=== PATIENT | female | born 1940 | race Caucasian/White ===

== ENCOUNTER 2017-10-30 17:01 | Inpatient (IN) | payer MEDICARE, OTHER ==
[2017-10-30 17:14] LABS: #Lymphocytes 0.8 thou/uL (1.20-3.40); #Monocytes 0.8 thou/uL (0.11-0.59); #Neutrophils 13.2 thou/uL (1.40-6.50); %Basophils 0.1 % (0.0-1.0); %Eosinophils 0.3 % (0.0-10.0); %Monocytes 5.3 % (0.0-10.0); %Neutrophils 89.3 % (42.0-75.0); Hemoglobin 12.4 g/dL (12.0-16.0); Mean Corpuscular HGB CONC 33.8 g/dL (32.0-36.0); Mean Corpuscular Hemoglobin 31.5 pg (27.0-31.0); Mean Corpuscular Volume 93.1 fL (78.0-98.0); Mean Platelet Volume 6.8 fL (7.4-10.4); Platelet Count 179 thou/uL (130-400); RBC Distribution Width 13.1 % (11.5-14.5); Red Blood Cell (RBC) Count 3.93 mill/uL (4.20-5.40); White Blood Cell (WBC) Count 14.8 thou/uL (4.8-10.8)
[2017-10-30 17:22] LABS: INR-International Normal Ratio 1.3; PTT 29.6 SEC (22.9-36.1); Prothrombin Time 16.3 SEC (12.0-14.7)
[2017-10-30 17:35] LABS: ALT (SGPT) 15 U/L (8-55); AST (SGOT) 16 U/L (5-34); Albumin 3.5 g/dL (3.4-4.8); Anion Gap 13 mmol/L (10-20); BUN (Urea Nitrogen) 26 mg/dL (9.8-20.1); Bilirubin, Total 1.4 mg/dL (0.2-1.2); Calc. Creatinine Clearance 0 mL/min (70-130); Calcium 7.4 mg/dL (7.8-10.44); Carbon Dioxide 18 mmol/L (23-31); Chloride 104 mmol/L (98-107); Estimated GFR-MDRD 90; Globulin 1.9 g/dL (2.4-3.5); Glucose 143 mg/dL (83-110); Potassium 3.7 mmol/L (3.5-5.1); Protein, Total 5.4 g/dL (6.0-8.3); Sodium 131 mmol/L (136-145)
[2017-10-30 17:35] LABS: CKMB 1.5 ng/mL (0-6.6); Troponin I Less than 0.010 ng/mL (< 0.028)
[2017-10-30 17:50] LABS: Alkaline Phosphatase 48 U/L (40-150)
[2017-10-30] MEDS ORDERED: Ondansetron ODT 4 MG TAB PO PRN (18:32)
[2017-10-30] MEDS ORDERED: Dextrose 50% Abboject 50 ML SYRINGE SLOW IVP PRN (18:32)
[2017-10-30] MEDS ORDERED: traMADol HCl 50 MG TAB PO PRN (18:32)
[2017-10-30] MEDS ORDERED: Ondansetron HCl/PF 4 MG/2 ML Vial IVP PRN (18:32)
[2017-10-30] MEDS ORDERED: Dextrose 5% in Water 1,000 ML IV PRN (18:32)
[2017-10-30 18:36] VITALS: BMI 25.2
[2017-10-30 19:02] LABS: Hemoglobin 11.6 g/dL (12.0-16.0)
[2017-10-30] MEDS: Sodium Chloride 0.9% 1,000 ML IV SCH (20:05)
--- NOTE | 2017-10-30 21:28 | RAD ---
PELVIS ONE VIEW: HISTORY: Pelvic rami fractures. COMPARISON: Outside facility CT. FINDINGS: There are nondisplaced bilateral pubic body and inferior pubic rami fractures. No acetabular fractur e is appreciated. The SI joints are not widened. IMPRESSION: 1. Nondisplaced bilateral pubic body and pubic rami fractures. 2. Soft tissue density of the left pelvis, likely from known space of Retzius hematoma. POS: [facility]
[2017-10-30] MEDS: Famotidine 20 MG TAB PO SCH (21:48)
[2017-10-31] MEDS: Acetaminophen 1,000 MG in Premix Bag 1 BAG IVPB SCH ×2 (00:15→05:36)
--- NOTE | 2017-10-31 00:34 | HP ---
DATE OF ADMISSION: 10/30/2017 ADMISSION HISTORY AND PHYSICAL REQUESTING PHYSICIAN: Dr. Traore. ATTENDING SURGEON: Dr. Corley. CONSULTATION: Orthopedics, Dr. Wood. HISTORY OF PRESENT ILLNESS: The patient is a 77-year-old, woman, who was walking her dog w hen she tripped and fell backwards landing on her buttocks. She had immediate pain to her right side , specifically to her right hip and shoulder. She was taken to the emergency department by ground EM S in [place] where she underwent evaluation and examination and was noted to have inferior and sup erior pubic rami fractures on the right pelvic hematoma. While there, the patient had an episode of hypotension with systolic blood pressure in the 90s, at which time, they transfused her one unit of b lood and gave her a liter of normal saline, her blood pressure then returned above 100 systolic. We were asked to take the patient as a transfer for close monitoring and a higher level of care. En rou te, the air ambulance crew reported that her blood pressure again dropped below 100 systolic, and the y gave her another unit of blood. No time was a report of tachycardia with the patient's blood press ure changes. The patient at no time had altered mental status or change in level of consciousness, a nd according to family, it has been at her baseline. The patient was initially activated as a level 1 trauma. Shortly after arriving, initial assessment showed that she was stable and was downgraded to a level 2. Dr. Corley examined the patient with me in the trauma bay. PHYSICAL EXAMINATION: VITAL SIGNS: Blood pressure 114/70, heart rate 70, respirations 18, oxygen saturation 97% on 2 liter s via nasal cannula, temperature is 97.9. HEENT: Head is normocephalic, atraumatic. Eyes: Extraocular motion intact. PERRLA bilaterally. E ars are atraumatic with discharge. Nose is atraumatic with discharge. Oropharynx is clear. NECK: Has a small amount of tenderness to the right paraspinous area. There is no tenderness to mid line. Trachea is midline. There is no JVD. CHEST: Clear to auscultation with good inspiratory and expiratory effort. There was a small abrasio n noted to the posterior aspect of her right shoulder. HEART: Regular rate and rhythm. ABDOMEN: Soft, flat, nontender with active bowel sounds. The patient has tenderness to palpation ov er this suprapubic area consistent with her hematoma. MUSCULOSKELETAL: Pelvis is tender to palpation. EXTREMITIES: Neurovascularly intact x4. BACK: Nontender and atraumatic. LABORATORY DATA: White blood cell count 14.8, hemoglobin 12.4, hematocrit 36.6, platelets 179. Sodi um 131, potassium 3.7, chloride 104, CO2 of 18, BUN 26, creatinine 0.64, glucose 143. Total bilirubi n 1.4, AST 16, ALT 15. CK-MB 1.5. Troponin less than 0.010. BNP 124. INR 1.3, PT 16, PTT 30. RADIOGRAPHIC FINDINGS: CT of the brain without contrast was unremarkable for acute findings. CT of the C-spine without contrast is unremarkable for acute findings. CT of the chest, abdomen, and pelvi s without contrast shows inferior and superior pubic rami fractures on the right with a 9 x 9 cm pelv ic hematoma. ASSESSMENT AND PLAN: 1. Status post ground level fall. 2. Right inferior and superior pubic rami fractures. 3. Intrapelvic hematoma. 4. History of hypotension. Plan will be to admit the patient to the Intermediate Care Unit for close observation, serial exams. We will repeat her hemoglobin and hematocrit q.6 hours throughout the night. Otherwise, the patient will have pain control, clear liquid diet, pulmonary toilet, gastritis, mechanical VTE prophylaxis. In the morning, we will have the patient evaluated by Orthopedics and then subsequently by PT and OT . The evaluation, examination, laboratory and radiographic findings were done with Dr. Corley in [facility] emergency department.
[2017-10-31 00:53] LABS: Hemoglobin 10.3 g/dL (12.0-16.0)
[2017-10-31 03:58] LABS: #Monocytes 0.7 thou/uL (0.11-0.59); #Neutrophils 7.5 thou/uL (1.40-6.50); %Basophils 0.3 % (0.0-1.0); %Eosinophils 0.3 % (0.0-10.0); %Neutrophils 81.4 % (42.0-75.0); Hemoglobin 10.2 g/dL (12.0-16.0); Mean Corpuscular HGB CONC 34.2 g/dL (32.0-36.0); Mean Corpuscular Hemoglobin 31.4 pg (27.0-31.0); Mean Corpuscular Volume 91.7 fL (78.0-98.0); Mean Platelet Volume 6.9 fL (7.4-10.4); Platelet Count 166 thou/uL (130-400); RBC Distribution Width 13.4 % (11.5-14.5); Red Blood Cell (RBC) Count 3.24 mill/uL (4.20-5.40); White Blood Cell (WBC) Count 9.2 thou/uL (4.8-10.8)
[2017-10-31 04:20] LABS: Anion Gap 12 mmol/L (10-20); BUN (Urea Nitrogen) 25 mg/dL (9.8-20.1); Calc. Creatinine Clearance 78 mL/min (70-130); Carbon Dioxide 21 mmol/L (23-31); Chloride 103 mmol/L (98-107); Estimated GFR-MDRD Greater than 90; Glucose 134 mg/dL (83-110); Potassium 3.5 mmol/L (3.5-5.1); Sodium 132 mmol/L (136-145)
[2017-10-31] MEDS: Levothyroxine Sodium 25 MCG TAB PO SCH (05:36)
[2017-10-31] MEDS: Sodium Chloride 0.9% 1,000 ML IV SCH (09:28)
[2017-10-31] MEDS: Acetaminophen 325 MG TAB PO SCH ×3 (09:41→20:43)
[2017-10-31] MEDS: Ibuprofen 600 MG TAB PO SCH ×3 (09:41→20:44)
[2017-10-31] MEDS: traMADol HCl 50 MG TAB PO SCH ×2 (09:41→14:52)
[2017-10-31] MEDS: Famotidine 20 MG TAB PO SCH ×2 (09:43→20:43)
[2017-10-31] MEDS: Prevnar 13-Val Conj/PF 0.5 ML SYRINGE IM ONE ×2 (09:43→15:23)
--- NOTE | 2017-10-31 09:46 | RAD ---
PORTABLE CHEST: Date: 10/31/17 HISTORY: Chest pain. COMPARISON: None. FINDINGS: Heart size appears slightly enlarged. There are fairly extensive mitral annulus calcifications seen. Lungs are clear of infiltrates. There are no signs of failure. IMPRESSION: Mild cardiomegaly. POS: [facility]
[2017-10-31 09:49] LABS: Hemoglobin 9.4 g/dL (12.0-16.0)
--- NOTE | 2017-10-31 11:35 | RAD ---
AP PELVIS: Date: 10/31/17 HISTORY: Follow-up of pelvic fracture. Binder has been removed. COMPARISON: 10/30/17 examination. FINDINGS: Fracture of the symphysis region is seen. The fracture was along the left side of the symphysis. I do not see any significant increased diastasis of the symphysis; however, there appears to be greater i rregularity and slight displacement of a fracture fragment involving the more superior aspect of the left side of the symphysis. Right inferior pubic rami fracture is appreciated. No other findings. IMPRESSION: No definite widening to the symphysis, although there appears to be slightly greater displacement of a small bony fragment involving the left side of the symphysis as compared to the prior exam. This ma y be entirely a projectional finding. It involves superior aspect of left side of symphysis. POS: [facility]
--- NOTE | 2017-10-31 11:36 | RAD ---
RIGHT SHOULDER 4 VIEWS: Date: 10/31/17 HISTORY: Fall with shoulder pain. FINDINGS: The bones are demineralized. There are some mild arthritic changes of the AC and glenohumeral joints. I do not see any signs of fracture or dislocation. IMPRESSION: No acute injury. POS: [facility]
--- NOTE | 2017-10-31 12:24 | CON ---
DATE OF CONSULTATION: 10/31/2017 We were asked by the Emergency Room and Trauma to see the patient. The patient was cameron here from [facility]. She was seen in the ER, found to have a pelvis fracture and she had a hematoma. They w ere concerned about stability. She was given a unit of blood at the emergency room and in flight her e to our hospital. This morning when I see the patient, she is surrounded by her family. She is res ting in bed, still with a pelvic binder in place, in no acute distress. She had a restful evening. Other than pain in the pelvis with movement, she is doing very well. She had a few vagal episodes as her granddaughter is a nurse described due to pain and this is also another reason why she received blood. Denies any numbness and tingling in the legs moving both lower extremities well. Only inhibi opal due to pelvic pain, right more than left. She also complained of some right shoulder pain mostly with palpation. She feels she landed on her hip, then her shoulder and hit her head. Other than pe lvis, series of brain scan was negative. I could not find any shoulder images on her films sent from [facility]. PAST SURGICAL HISTORY: Positive for history of breast CA, hypothyroid, hypertension. PAST SURGICAL HISTORY: Left foot and right foot bunion, bilateral knee surgeries, right shoulder zafar wen, appendix, hysterectomy, mastectomy, right breast. PSYCHIATRIC HISTORY: Some mild anxiety. SOCIAL HISTORY: No alcohol or nicotine products and she is very independent. ALLERGIES: IODINE products. CURRENT MEDICATIONS: Valsartan, hydrochlorothiazide, benazepril, gabapentin, levothyroxine. REVIEW OF SYSTEMS: Denies any chest pain, shortness of breath. Her only complaint is a little bit o f right-sided neck pain mostly due to the shoulder with movement and pelvis pain. Denies any numbnes s and tingling in the extremities currently. Rest review of systems negative. PHYSICAL EXAMINATION: GENERAL: Well-nourished, well-developed female. Again, with family at bedside. Speech clear. Answ ers questions appropriately. She is oriented x3. She is a little bit hard of hearing. HEENT: Normal exam. Face symmetric, tongue midline. NECK: Supple. Little palpable tenderness. Posterior cervical musculature, mild. EXTREMITIES: Upper extremities, she is moving her right upper extremity okay, but has a little bit o f pain superiorly and along the AC joint area. Palpation of this area does elicit some pain. She peoples s had shoulder surgery in the past and she does state this has been painful since the surgery, but to lerable, both upper extremities equal size, shape, symmetry, normal bulk and tone. Pulses sensations equal lower extremities. She is able to move these equally, but has a lot of pelvic pain with doing so. Pelvic rocking after removing the binder, it is a little bit tender, right more so than left. We were able to roll back and forth to remove the binder and she tolerated this fairly well. DP, PT pulses equal. ASSESSMENT: Fall with ensuing pelvic fracture. PLAN: She did come with images from [facility]. We will get new images of the shoulder and pelvis a nd review those once they are done. She is currently in the IMCU. Trauma will move her upstairs to surgical floor. She is stable. Once x-rays are completed, we will start physical therapy and then probably want to repeat images aft er she has gotten up a little bit to make sure there is no instability in the pelvis. Family is happ y with the plan. We will get case management involved, so she can get into a rehab or skilled and co ntinue physical therapy as she will probably need this for some time.
--- NOTE | 2017-10-31 13:19 | PRG-2 ---
DATE OF SERVICE: 10/31/2017 SUBJECTIVE: This is a 77-year-old female who was admitted here after being diagnosed with an inferio r and superior pubic rami fractures and a right pelvic hematoma. This morning, the patient states th at her pain is being controlled. She denies any episodes of loss of consciousness while she has been here. She denies nausea, vomiting, trouble breathing or dysuria. OBJECTIVE: VITAL SIGNS: Temperature 97.8, pulse 73, respirations 18, pulse ox 97% on 1 liter, blood pressure 11 5/55. GENERAL: The patient is sitting in bed. Family members at her bedside. She is in no acute distress . CARDIOVASCULAR: Heart regular rate and rhythm with no murmurs. LUNGS: Clear to auscultation bilaterally. ABDOMEN: Bowel sounds are present. Abdomen is tender to light palpation. EXTREMITIES: The patient has 2+ pulses in all 4 extremities and is neurovascularly intact. IMAGIN. AP pelvis shows no definite widening of the symphysis, although there appears to be slightly grea ter displacement of small bony fragment involving the left side of the symphysis as compared to prior exam. This may be entirely projectional finding. Involves the superior aspect of the left side of the symphysis. 2. Portable chest x-ray; mild cardiomegaly. No signs of failure. 3. Right shoulder 4 view, no acute injury, no signs of fracture or dislocation. ASSESSMENT: 1. Status post ground level fall. 2. Right inferior and superior pubic rami fractures. 3. Intrapelvic hematoma status post 2 units of blood and 2 liters of crystalloid. 4. History of hypotension. PLAN: The patient will be transferred to [place] [id number]. She has had no significant episodes of hypotensio n or symptomatic bradycardia. We will continue encouraging working with physical therapy and occupat ional therapy. We will continue pain control and supportive measures as well as GI and deep venous t hrombosis prophylaxis. We will also discontinue the Mckeon catheter upon transfer. Dr. De La Cruz saw this patient. We discussed the treatment plan.
[2017-10-31] MEDS: Gabapentin 100 MG CAP PO SCH (20:44)
[2017-10-31] MEDS: Donepezil HCl 5 MG TAB PO SCH (20:44)
[2017-11-01] MEDS: traMADol HCl 50 MG TAB PO SCH ×2 (01:16→04:16)
[2017-11-01] MEDS: Ibuprofen 600 MG TAB PO SCH ×4 (04:15→21:33)
[2017-11-01] MEDS: Acetaminophen 325 MG TAB PO SCH ×4 (04:15→21:33)
[2017-11-01] MEDS: Levothyroxine Sodium 25 MCG TAB PO SCH (05:57)
[2017-11-01 06:44] LABS: #Eosinphils 0.2 thou/uL (0.0-0.7); #Lymphocytes 0.6 thou/uL (1.20-3.40); #Monocytes 0.6 thou/uL (0.11-0.59); #Neutrophils 7.8 thou/uL (1.40-6.50); %Basophils 0.4 % (0.0-1.0); %Eosinophils 2.2 % (0.0-10.0); %Lymphocytes 6.2 % (21.0-51.0); %Monocytes 6.7 % (0.0-10.0); %Neutrophils 84.5 % (42.0-75.0); Hemoglobin 9.3 g/dL (12.0-16.0); Mean Corpuscular HGB CONC 33.6 g/dL (32.0-36.0); Mean Corpuscular Hemoglobin 31.4 pg (27.0-31.0); Mean Corpuscular Volume 93.4 fL (78.0-98.0); Mean Platelet Volume 6.8 fL (7.4-10.4); Platelet Count 151 thou/uL (130-400); RBC Distribution Width 13.3 % (11.5-14.5); Red Blood Cell (RBC) Count 2.96 mill/uL (4.20-5.40); White Blood Cell (WBC) Count 9.2 thou/uL (4.8-10.8)
[2017-11-01 06:54] LABS: Anion Gap 11 mmol/L (10-20); BUN (Urea Nitrogen) 21 mg/dL (9.8-20.1); Calc. Creatinine Clearance 76 mL/min (70-130); Calcium 7.9 mg/dL (7.8-10.44); Carbon Dioxide 23 mmol/L (23-31); Chloride 100 mmol/L (98-107); Estimated GFR-MDRD Greater than 90; Glucose 101 mg/dL (83-110); Magnesium 1.5 mg/dL (1.6-2.6); Phosphorus 2.2 mg/dL (2.3-4.7); Potassium 3.5 mmol/L (3.5-5.1); Sodium 130 mmol/L (136-145)
[2017-11-01] MEDS ORDERED: Potassium Phosphate 30 MMOL, Magnesium Sulfate 4 GM in Sodium Chloride 0.9% 250 ML 250 ML IVPB SCH (08:45)
[2017-11-01] MEDS ORDERED: Magnesium Chloride 64 MG TAB PO SCH (09:00)
[2017-11-01] MEDS: Famotidine 20 MG TAB PO SCH ×2 (09:18→21:33)
[2017-11-01] MEDS: Senokot 8.6 MG TAB PO SCH ×2 (09:26→21:53)
[2017-11-01] MEDS: Polyethylene Glycol 3350 17 GM Packet PO SCH (09:26)
--- NOTE | 2017-11-01 12:50 | PRG-2 ---
DATE OF SERVICE: 11/01/2017. SUBJECTIVE: This is a 77-year-old female who was admitted here after being diagnosed with inferior a nd superior pubic rami fractures and right pelvic hematoma. This morning, the patient states that he r pain has been controlled and rates it as 1-2/10 at rest and 3/10 with movement. The patient states that she did get up with physical therapy today. Physical therapy states that the patient is requir ing PT for her bed motility as well as transfers and gait training. Patient denies nausea or vomitin g and ate breakfast this morning with no trouble. OBJECTIVE: VITAL SIGNS: Temperature 97.9, pulse 78, respirations 16, pulse ox 97% on room air, blood pressure 1 13/72. GENERAL: The patient is lying in bed, in no acute distress. CARDIOVASCULAR: Heart regular rate and rhythm with no murmurs. LUNGS: Clear to auscultation bilaterally. ABDOMEN: Bowel sounds are present. Patient reports mild tenderness with palpation of abdomen. EXTREMITIES: The patient has 2+ pulses in all 4 extremities and is neurovascularly intact. While I was taking the pelvic binder off today, the patient expressed some pain in her left leg with light pr essure. LABORATORY DATA: CBC, white blood cell count 9.2, hemoglobin was 9.3 up from 9.0, hematocrit was 27. 7, MCV 93.4, platelet count 151. Sodium 130, potassium 3.5, chloride 100, bicarbonate 23, BUN 21, cr eatinine 0.61, glucose 101. Phosphorus 2.2, magnesium 1.5. ASSESSMENT: 1. Status post ground level fall. 2. Right inferior and superior pubic rami fractures. 3. Intrapelvic hematoma status post 2 units of blood and 2 liters of crystalloid. 4. History of hypotension. 5. Acute on chronic hyponatremia. 6. Hypophosphatemia. 7. Hypomagnesemia. PLAN: The patient will continue to work with physical therapy to help her with bed motility, transfe rring from bed to chair as well as her gait. We will work to control her pain during this time. Mellisa mock is also on gastrointestinal and deep venous thrombosis prophylaxis. We will also replace the olegario rincon's potassium, magnesium, and phosphorus. Possibly adding a fluid restriction to help manage her hyponatremia. DISPOSITION: To Rehab for further physical therapy. Dr. De La Cruz saw this patient. We discussed the treatment plan.
[2017-11-01] MEDS: Gabapentin 100 MG CAP PO SCH (21:33)
[2017-11-01] MEDS: Donepezil HCl 5 MG TAB PO SCH (21:53)
[2017-11-02] MEDS: Acetaminophen 325 MG TAB PO SCH ×4 (04:16→20:44)
[2017-11-02] MEDS: Ibuprofen 600 MG TAB PO SCH ×4 (04:16→20:46)
[2017-11-02 04:38] LABS: #Eosinphils 0.2 thou/uL (0.0-0.7); #Lymphocytes 0.8 thou/uL (1.20-3.40); #Monocytes 0.5 thou/uL (0.11-0.59); #Neutrophils 2.6 thou/uL (1.40-6.50); %Basophils 0.3 % (0.0-1.0); %Eosinophils 5.5 % (0.0-10.0); %Lymphocytes 18.5 % (21.0-51.0); %Monocytes 11.9 % (0.0-10.0); %Neutrophils 63.8 % (42.0-75.0); Hemoglobin 8.5 g/dL (12.0-16.0); Mean Corpuscular HGB CONC 33.4 g/dL (32.0-36.0); Mean Corpuscular Hemoglobin 31.4 pg (27.0-31.0); Mean Corpuscular Volume 93.8 fL (78.0-98.0); Mean Platelet Volume 7.1 fL (7.4-10.4); Platelet Count 157 thou/uL (130-400); RBC Distribution Width 13.4 % (11.5-14.5); Red Blood Cell (RBC) Count 2.72 mill/uL (4.20-5.40)
[2017-11-02 04:55] LABS: Anion Gap 10 mmol/L (10-20); BUN (Urea Nitrogen) 15 mg/dL (9.8-20.1); Calc. Creatinine Clearance 76 mL/min (70-130); Calcium 7.8 mg/dL (7.8-10.44); Carbon Dioxide 27 mmol/L (23-31); Chloride 101 mmol/L (98-107); Estimated GFR-MDRD Greater than 90; Glucose 94 mg/dL (83-110); Magnesium 1.9 mg/dL (1.6-2.6); Phosphorus 2.3 mg/dL (2.3-4.7); Potassium 3.7 mmol/L (3.5-5.1); Sodium 134 mmol/L (136-145)
[2017-11-02] MEDS: Levothyroxine Sodium 25 MCG TAB PO SCH (07:18)
[2017-11-02] MEDS: Famotidine 20 MG TAB PO SCH ×2 (08:46→20:45)
[2017-11-02] MEDS: Senokot 8.6 MG TAB PO SCH ×2 (08:47→20:46)
[2017-11-02] MEDS: Polyethylene Glycol 3350 17 GM Packet PO SCH (08:47)
[2017-11-02] MEDS: HYDROcodone/Acetaminophen 5/325 mg Tablet PO SCH ×3 (10:09→21:18)
--- NOTE | 2017-11-02 16:12 | PRG ---
DATE OF SERVICE: 11/02/2017 SUBJECTIVE: Ms. Dukes is a 77-year-old female admitted to the Trauma Service and transferred out of the ICU yesterday to the surgical [facility] after a fall with inferior and superior pubic rami fractures and pelvic hematoma. She was seen by Orthopedics as nonoperative approach. She is hospital day #3. On bedside rounds this morning the patient is sitting up in bed. She has ambulated a couple feet with PT. Her pain has not been greatly controlled and this will be addressed. Her Mckeon has been discontinued. Pulse ox is noted to be a little low. She is coughing and SpO2 does increase off of oxygen with deep breathing and cough. LABORATORY DATA: Reviewed. OBJECTIVE: VITAL SIGNS: Blood pressure is 132/71, heart rate is 78, respiratory rate is 18 , temperature is 97.6. She is 90 liters on room air. GENERAL: A 77-year-old female sitting up in no acute distress. HEENT: Normocephalic, atraumatic. Trachea is midline. RESPIRATORY: Equal rise and fall. No respiratory distress. Spo2 responds on room air to deep breathing in IS as well as cough. CARDIOVASCULAR: Regular rate and rhythm. EXTREMITIES: No edema. MUSCULOSKELETAL: She does have some pelvic pain reported, is stable. No mariel edema. SKIN: [place], warm and dry. NEUROLOGIC: Alert and oriented to person, place, time, and event. LABORATORY DATA: Today sodium is 134, potassium is 3.7, chloride is 101, CO2 is 27, BUN is 15, creatinine is 0.6. Mag is 1.9, phos is 2.3. CBC: Hemoglobin and hematocrit 8.5 and 25.5 respectively. White blood cell count 4.0 , platelets are 157. ASSESSMENT: 1. Status post ground level fall. 2. Right inferior and superior pubic rami fracture. 3. Intrapelvic hematoma status post 2 units PRBC and crystalloid resuscitation. 4. Acute on chronic hyponatremia. 5. History of hypertension this hospitalization with a chronic history of hypertension. PLAN: 1. The patient will need inpatient rehab for further management of her pelvic fractures. 2. We have discussed with case management. She was initially refused by her insurance for rehab placement and they are requesting a [facility] facility. We have placed a reassessment form and asked to speak to the medical fee clerk as the patient is hyponatremic, borderline hypotensive off of blood pressure medicine seems to be reasonable to transfer her to rehab from [facility] facility to maintain her balance. 3. Continue free water restriction. 4. Continue to hold antihypertensives. 5. Increased pain control, ct with IS 6. Continue to work with PT access or peripheral IVs. The patient is a FULL CODE. DISPOSITION: Surgical [facility] until cleared by insurance company with hope to transfer to rehab today or tomorrow. The patient was seen with Dr. De La Cruz. This plan can be updated as needed. MTDD
[2017-11-02] MEDS: Donepezil HCl 5 MG TAB PO SCH (20:44)
[2017-11-02] MEDS: Gabapentin 100 MG CAP PO SCH (20:45)
[2017-11-03] MEDS: Acetaminophen 325 MG TAB PO SCH ×4 (04:00→19:44)
[2017-11-03] MEDS: Ibuprofen 600 MG TAB PO SCH ×4 (04:00→19:43)
[2017-11-03] MEDS: HYDROcodone/Acetaminophen 5/325 mg Tablet PO SCH ×4 (04:02→21:53)
[2017-11-03] MEDS: Levothyroxine Sodium 25 MCG TAB PO SCH (06:25)
[2017-11-03] MEDS: Famotidine 20 MG TAB PO SCH ×2 (08:27→19:46)
[2017-11-03] MEDS: Senokot 8.6 MG TAB PO SCH ×2 (08:28→19:44)
[2017-11-03] MEDS: Polyethylene Glycol 3350 17 GM Packet PO SCH (08:28)
[2017-11-03] MEDS: Hydrochlorothiazide 25 MG TAB PO SCH (10:56)
[2017-11-03] MEDS: Valsartan 80 MG TAB PO SCH (10:56)
--- NOTE | 2017-11-03 11:39 | PRG-2 ---
DATE OF SERVICE: 11/03/2017 SUBJECTIVE: This is a 77-year-old female who was admitted here after being diagnosed with a superior and inferior pubic rami fracture and right pelvic hematoma. This morning the patient states that he r pain has been controlled. She is only sore with movement. The patient states that she tolerated b reakfast. Social work indicates that she was denied rehab status will be evaluated for SNF placement to which a letter has been sent as a referral to [facility] in [place]. Physical Therapy states t hat the patient is progressing towards goals, but still has physical barriers including pain, decreas ed activity tolerance and strength and recommend continued physical therapy to resume prior level of function. OBJECTIVE: VITAL SIGNS: Temperature 98.1, pulse 67, respiration rate 18, pulse ox 96 on 2 liters nasal cannula, blood pressure 152/82. GENERAL: The patient is lying in bed in no acute distress. CARDIOVASCULAR: Heart regular rate and rhythm with no murmurs. CHEST: Lungs clear to auscultation bilaterally. ABDOMEN: Soft. Bowel sounds are present. The patient reports improving tenderness with palpation o f the abdomen. EXTREMITIES: The patient has 2+ pulses in all 4 extremities and is neurovascularly intact. LABORATORY DATA: None to review for today. RADIOGRAPHIC DATA: None to review today. ASSESSMENT: 1. Status post ground level fall. 2. Right inferior and superior pubic rami fractures. 3. Intrapelvic hematoma status post 2 units of blood and 2 liters of crystalloid given prior to admi ssion. 4. History of hypotension. 5. Acute on chronic hyponatremia, improving. 6. Hyperphosphatemia. 7. Hypomagnesemia. PLAN: The patient will continue working with physical therapy to help with bed motility as well as t ransferring to bed and her gait. Continue to control her pain during that time. The patient is on G I and DVT prophylaxis. DISPOSITION: To SNF for physical therapy. Dr. De La Cruz saw this patient. We discussed the treatment plan.
[2017-11-03] MEDS: Gabapentin 100 MG CAP PO SCH (19:43)
[2017-11-03] MEDS: Donepezil HCl 5 MG TAB PO SCH (19:43)
[2017-11-04] MEDS: Ibuprofen 600 MG TAB PO SCH ×4 (03:59→21:14)
[2017-11-04] MEDS: HYDROcodone/Acetaminophen 5/325 mg Tablet PO SCH ×4 (03:59→21:14)
[2017-11-04] MEDS: Acetaminophen 325 MG TAB PO SCH ×4 (04:00→20:13)
[2017-11-04] MEDS: Levothyroxine Sodium 25 MCG TAB PO SCH (05:56)
[2017-11-04] MEDS: Famotidine 20 MG TAB PO SCH ×2 (09:27→21:14)
[2017-11-04] MEDS: Hydrochlorothiazide 25 MG TAB PO SCH (09:28)
[2017-11-04] MEDS: Valsartan 80 MG TAB PO SCH (09:28)
[2017-11-04] MEDS: Senokot 8.6 MG TAB PO SCH ×2 (09:35→20:14)
[2017-11-04] MEDS: Polyethylene Glycol 3350 17 GM Packet PO SCH (09:35)
[2017-11-04] MEDS: Donepezil HCl 5 MG TAB PO SCH (21:14)
[2017-11-04] MEDS: Gabapentin 100 MG CAP PO SCH (21:14)
--- NOTE | 2017-11-04 21:45 | PRG ---
DATE OF SERVICE: 11/04/2017 SUBJECTIVE: The patient is currently on the surgical floor. She was admitted status post fall in ich she sustained a right inferior and superior pubic rami fracture and a pelvic hematoma. The patie nt also had a right shoulder contusion, which her shoulder contusion this morning is her chief compla int. She states that it is tolerable, but she has noticed that it is starting to bother her more as she works with physical and occupational therapy. The patient is currently awaiting final placement decision, which is [place] [facility] [place] [facility]. PHYSICAL EXAMINATION: VITAL SIGNS: Temperature 98.1, heart rate 66, blood pressure 155/92, respirations 16, oxygen saturat ion 95% on room air. GENERAL: The patient is resting comfortably in bed. She is awake, alert, and oriented x3. HEENT: Unremarkable. LUNGS: Clear to auscultation. HEART: Regular rate and rhythm. ABDOMEN: Soft, flat, nontender with active bowel sounds. EXTREMITIES: Neurovascularly intact x4. LABORATORY AND RADIOGRAPHIC FINDINGS: There are no laboratory or radiographic results to be reviewed . ASSESSMENT AND PLAN: 1. Status post ground level fall. 2. Right inferior and superior pubic rami fractures. 3. Intrapelvic hematoma. Plan will be to continue supportive care, physical and occupational therapy, and await final placemen t decision.
[2017-11-05] MEDS: Ibuprofen 600 MG TAB PO SCH ×4 (02:45→21:06)
[2017-11-05] MEDS: Acetaminophen 325 MG TAB PO SCH ×4 (02:45→18:04)
[2017-11-05] MEDS: HYDROcodone/Acetaminophen 5/325 mg Tablet PO SCH ×4 (04:55→21:06)
[2017-11-05] MEDS: Levothyroxine Sodium 25 MCG TAB PO SCH (06:39)
[2017-11-05] MEDS: Valsartan 80 MG TAB PO SCH (08:43)
[2017-11-05] MEDS: Senokot 8.6 MG TAB PO SCH ×2 (08:43→21:09)
[2017-11-05] MEDS: Famotidine 20 MG TAB PO SCH ×2 (08:43→21:06)
[2017-11-05] MEDS: Hydrochlorothiazide 25 MG TAB PO SCH (08:43)
[2017-11-05] MEDS: Polyethylene Glycol 3350 17 GM Packet PO SCH (08:44)
[2017-11-05] MEDS: Donepezil HCl 5 MG TAB PO SCH (21:05)
[2017-11-05] MEDS: Gabapentin 100 MG CAP PO SCH (21:05)
[2017-11-06] MEDS: Acetaminophen 325 MG TAB PO SCH ×4 (00:27→17:25)
[2017-11-06] MEDS: Ibuprofen 600 MG TAB PO SCH ×4 (03:30→21:24)
[2017-11-06] MEDS: HYDROcodone/Acetaminophen 5/325 mg Tablet PO SCH ×4 (04:15→21:28)
[2017-11-06] MEDS: Levothyroxine Sodium 25 MCG TAB PO SCH (06:38)
[2017-11-06] MEDS: Senokot 8.6 MG TAB PO SCH ×2 (08:49→21:24)
[2017-11-06] MEDS: Polyethylene Glycol 3350 17 GM Packet PO SCH (08:49)
[2017-11-06] MEDS: Valsartan 80 MG TAB PO SCH (08:50)
[2017-11-06] MEDS: Famotidine 20 MG TAB PO SCH ×2 (08:50→21:24)
[2017-11-06] MEDS: Hydrochlorothiazide 25 MG TAB PO SCH (08:50)
[2017-11-06] MEDS: Gabapentin 100 MG CAP PO SCH (21:24)
[2017-11-06] MEDS: Donepezil HCl 5 MG TAB PO SCH (21:24)
[2017-11-07] MEDS: Acetaminophen 325 MG TAB PO SCH ×3 (01:57→11:38)
[2017-11-07] MEDS: HYDROcodone/Acetaminophen 5/325 mg Tablet PO SCH ×2 (04:11→10:31)
[2017-11-07] MEDS: Ibuprofen 600 MG TAB PO SCH ×2 (04:11→08:55)
[2017-11-07] MEDS: Levothyroxine Sodium 25 MCG TAB PO SCH (05:59)
[2017-11-07 08:52] LABS: #Eosinphils 0.4 thou/uL (0.0-0.7); #Lymphocytes 1.3 thou/uL (1.20-3.40); #Monocytes 0.8 thou/uL (0.11-0.59); #Neutrophils 4.3 thou/uL (1.40-6.50); %Basophils 0.3 % (0.0-1.0); %Eosinophils 6.3 % (0.0-10.0); %Lymphocytes 19.2 % (21.0-51.0); %Monocytes 11.1 % (0.0-10.0); %Neutrophils 63.1 % (42.0-75.0); Hemoglobin 10.7 g/dL (12.0-16.0); Mean Corpuscular Hemoglobin 30.9 pg (27.0-31.0); Mean Corpuscular Volume 93.7 fL (78.0-98.0); Mean Platelet Volume 6.1 fL (7.4-10.4); Platelet Count 410 thou/uL (130-400); RBC Distribution Width 13.3 % (11.5-14.5); Red Blood Cell (RBC) Count 3.45 mill/uL (4.20-5.40); White Blood Cell (WBC) Count 6.8 thou/uL (4.8-10.8)
[2017-11-07] MEDS: Famotidine 20 MG TAB PO SCH (08:54)
[2017-11-07] MEDS: Valsartan 80 MG TAB PO SCH (08:54)
[2017-11-07] MEDS: Hydrochlorothiazide 25 MG TAB PO SCH (08:54)
[2017-11-07] MEDS: Senokot 8.6 MG TAB PO SCH (08:57)
[2017-11-07] MEDS: Polyethylene Glycol 3350 17 GM Packet PO SCH (08:58)
[2017-11-07] MEDS ORDERED: Scopolamine 1.5 mg/72 hour Patch TD SCH (09:00)
[2017-11-07 09:07] LABS: Anion Gap 12 mmol/L (10-20); BUN (Urea Nitrogen) 17 mg/dL (9.8-20.1); Calc. Creatinine Clearance 74 mL/min (70-130); Calcium 9.3 mg/dL (7.8-10.44); Carbon Dioxide 29 mmol/L (23-31); Chloride 94 mmol/L (98-107); Estimated GFR-MDRD Greater than 90; Glucose 104 mg/dL (83-110); Magnesium 1.6 mg/dL (1.6-2.6); Phosphorus 3.5 mg/dL (2.3-4.7); Potassium 3.5 mmol/L (3.5-5.1); Sodium 131 mmol/L (136-145)
[2017-11-07 11:21] VITALS: BP 118/72; TEMP 97.8
--- NOTE | 2017-11-08 11:51 | DIS ---
DATE OF ADMISSION: 10/30/2017 DATE OF DISCHARGE: 11/07/2017 ADMISSION DIAGNOSES: 1. Status post ground level fall. 2. Right inferior and superior pubic rami fractures. 3. Intrapelvic hematoma. 4. History of hypotension. DISCHARGE DIAGNOSES: 1. Status post ground level fall. 2. Right inferior and superior pubic rami fractures. 3. Intrapelvic hematoma. 4. History of hypotension. MACHINE JOINER CEMENTER: Dr. Kraft. PROCEDURES: None. HOSPITAL COURSE: Whitney Dukes is a 77-year-old female who presented to [facility] status post mechan ical fall. Per patient, she had been walking her dog and she tripped and fell backward. She sustain ed the above injuries. She was admitted to the intermediate care unit for serial H&Hs and closer mon itoring. During the course of her hospitalization, the patient did well. Blood pressure stabilized. She worked with physical therapy, albeit with significant pain. She was seen and evaluated by [facility]. Initially, insurance denied but the family requested an appeal which was appro haile on 11/07/2017. She was tolerating a general diet and her pain was controlled with p.o. analgesic s. Therefore, she was stable for discharge to inpatient rehabilitation. DISCHARGE DISPOSITION: Inpatient rehabilitation. DISCHARGE CONDITION: Good. PHYSICAL EXAMINATION: VITAL SIGNS: Temperature 97.8, pulse 82, respiration rate 18, O2 sat 93% on room air, blood pressure 118/72. GENERAL: Elderly appearing female in no acute distress, sitting in bed, eating breakfast. PULMONARY: Normal work of breathing, symmetric rise. LUNGS: Clear to auscultation bilaterally. CARDIOVASCULAR: Regular rate and rhythm. GASTROINTESTINAL: Abdomen is soft, nontender, nondistended. MUSCULOSKELETAL: Moves all extremities x4. NEUROLOGIC: No focal deficit is noted. DISCHARGE INSTRUCTIONS: Discharge instructions were provided to the accepting facility and [facility]. All questions were answered prior to discharge. She is weightbearing as tolerated bilateral low er extremities. She is on a fluid-restricted diet for chronic hyponatremia. DISCHARGE MEDICATIONS: The patient was discharged on medications as documented in the electronic med ical record, a list of which was provided to the accepting facility. Of note, her blood pressure med ications were altered prior to her discharge and she will need to follow up with her primary care pro vider regarding this. FOLLOWUP APPOINTMENTS: Follow up with PCP as indicated above. Follow up with orthopedic surgery in approximately 10-14 days. She does not need to follow up formally with Trauma Services, but may call our office with any questions. This is merely a summary of the patient's hospitalization. For more in-depth information, please see her medical record in its entirety.
== END 2017-11-07 13:04 | DRG 536 ==
LOC: ERS 17:01 → IMCU/EMU 17:21 → SURG A 10-31 20:01
PROVIDERS: ADMIT Surgery; ATTEND Surgery
DX: S32.591A Other specified fracture of right pubis, initial encounter for closed fracture (principal); E87.1 Hypo-osmolality and hyponatremia; W01.0XXA Fall on same level from slipping, tripping and stumbling without subsequent striking against object, initial encounter; Y92.9 Unspecified place or not applicable; E03.9 Hypothyroidism, unspecified; I10 Essential (primary) hypertension; S30.0XXA Contusion of lower back and pelvis, initial encounter; F41.9 Anxiety disorder, unspecified; E83.39 Other disorders of phosphorus metabolism; E83.42 Hypomagnesemia; Z90.11 Acquired absence of right breast and nipple; Z85.3 Personal history of malignant neoplasm of breast
CPT/HCPCS: 36415; 71045; 72170; 80048; 80053; 82150; 82533; 82553; 83735; 83880; 84100; 84484; 85014; 85018; 85025; 85610; 85730; 86850; 86900; 86901; 90471; 90670; G0009; G0390; G8978-GP-CM; G8979-GP-CK; G8987-GO-CL; G8988-GO-CI; J0131; J2405; J3475; J7050; Q0162